=== PATIENT | female | born 1990 | race Two or more races ===

== ENCOUNTER 2020-05-12 07:45 | Inpatient (IN) | payer OTHER ==
[2020-05-12] MEDS ORDERED: NAPROXEN PO (10:19)
[2020-05-19] MEDS ORDERED: NAPROXEN SODIU550 MG (13:19)
== END 2020-05-21 15:19 | DRG 743 ==
LOC: OB/GYN 05-19 07:06 → O/R 05-19 07:06 → SURH 05-19 07:45 → OB/GYN 05-19 15:56
PROVIDERS: ADMIT Obstetrics & Gynecology Gynecologic Oncology; ATTEND Obstetrics & Gynecology Gynecologic Oncology
PROC: 0UT10ZZ Resection of Left Ovary, Open Approach (ICD-10-PCS; 2020-05-19)
PROC: 0UB00ZZ Excision of Right Ovary, Open Approach (ICD-10-PCS; 2020-05-19)
PROC: 0UT50ZZ Resection of Right Fallopian Tube, Open Approach (ICD-10-PCS; principal; 2020-05-19 10:30)
DX: D27.1 Benign neoplasm of left ovary (principal); D27.0 Benign neoplasm of right ovary; Z20.828 Contact with and (suspected) exposure to other viral communicable diseases